=== PATIENT | female | born 1950 | race Hispanic/Latino ===

== ENCOUNTER 2020-07-08 13:57 | Emergency (ER) | payer MEDICARE ==
[~2020-07-08] VITALS: Ht 165.1 cm; Wt 75.7 kg
--- NOTE | 2020-07-08 14:03 | Emergency Department Note ---
History of Present Illnes History of Present Illness Chief Complaint: leg pain History of Present Illness This is a 70 year old female, with no significant past medical history, who presents with a 5 day history of progressively worsening pain radiating from the right buttock down to the right lower extremity, just above the lateral aspect of the left foot. Patient states the pain is constant, burning pain. Patient states she had similar symptoms probably several months ago that were short- lived, and resolved without intervention. She has been taking Tylenol and Motrin for pain, without relief of her symptoms. She has not taken any medication since yesterday, during the day time. Patient denies any trauma, including no falling. She's had no bowel or bladder changes. She denies any fever, chills, nausea, vomiting, dysuria, or frequency. Historian: Patient, Family Member (cousin translated;) Arrival Mode: Car History limited by: language barrier Technical Programs Manager Required: Yes (patient's cousin translated) Onset (how long ago): day(s) (5) Location: RLE Quality: burning, shooting pain Radiation: Reports extremity (RLE) Severity: moderate Duration (how long): day(s) (5) Timing of current episode: constant Progression: unchanged Chronicity: new Context: Denies recent illness, Denies trauma/injury Relieving factors: none Exacerbating factors: movement Associated symptoms: Denies chest pain, Denies fever/chills, Denies headaches, Denies shortness of breath, Denies weakness Treatments prior to arrival: NSAID, antipyretic Past Medical/Family History Physician Review I have reviewed the patient's past medical and family history. Any updates have been documented here. Past Medical History Recent Fever: No Clinical Suspicion of Infectio: No New/Unexplained Change in Ment: No Past Medical History: None Past Surgical History: Cataract Removal (Left) Social History Smoking Cessation: Current every day smoker (1/ ppd) Counseling Performed: Yes Alcohol Use: None Any Illegal Drug Use: No TB Exposure/Symptoms: No Physically hurt or threatened: No Family History Family history of heart diseas: No Other Any Pre-Existing Lines (PICC,: No Is patient up to date on immun: No Review of Systems Review of Systems Constitutional: Denies chills, Denies fever EENTM: Denies ear pain, Denies nose congestion Cardiovascular: Denies chest pain, Denies palpitations Respiratory: Denies cough Gastrointestinal: Denies constipation, Denies diarrhea, Denies nausea, Denies vomiting Genitourinary: Denies dysuria, Denies frequency Musculoskeletal: Reports back pain (mild, low back), Reports muscle pain (lower lumbar right parapspincal muscles) Integumentary: Denies rash Neurological: Reports other ("burning pain" of LLE); Denies headache, Denies paresthesia, Denies tingling Psychological: Reports no symptoms Hematological/Lymphatic: Reports no symptoms Review of other systems: All other systems negative Physical Exam Related Data Vital signs reviewed: Yes Physical Exam CONSTITUTIONAL Constitutional: Present obese; Absent well-developed, Absent well-nourished, Absent distressed, Absent ill appearing, Absent other HENT HENT: Present normocephalic, Present atraumatic, Present oropharynx clear/moist, Present nose normal; Absent rhinorrhea HENT L/R: Present left ext ear normal, Present right ext ear normal EYES Eyes: Reports PERRL, Reports conjunctivae normal NECK Neck: Present ROM normal, Present supple; Absent cervical adenopathy PULMONARY Pulmonary: Present effort normal, Present breath sounds normal CARDIOVASCULAR Cardiovascular: Present regular rhythm, Present heart sounds normal, Present capillary refill normal, Present normal rate GASTROINTESTINAL GENITOURINARY Genitourinary: Present exam deferred SKIN Skin: Present warm, Present dry; Absent rash MUSCULOSKELETAL Musculoskeletal: Present ROM normal (+ SLR on right at 45 degress;), Present tenderness (ttp of right sciatic notch, without tenderness along L-spine or right SI joint; mild ttp of right greater trochanter;) NEUROLOGICAL Neurological: Present alert, Present oriented x 3, Present no gross motor or sensory deficits; Absent cranial nerve deficit, Absent abnormal gait, Absent weakness PSYCHOLOGICAL Psychological: Present mood/affect normal, Present judgement normal Assessment & Plan Medical Decision Making MDM - Apply ice to the area of pain for 15 - 20 minutes, multiple times/ day, to help with pain and inflammation. - Take medications, as directed. - Follow-up with a Primary Care Physician, if your symptoms persist or worsen, as you will need an MRI of your back and possibly right hip, for further evaluation of your pain. We do not perform MRI in the ER . Explained that patient's symptoms could also be due to a lumbar radiculopathy. The treatment prescribed, will potentially fix both problems. Assessment & Plan Final Impression: (1) Sciatica of right side (2) Leg pain, right Depart Disposition: HOME, SELF-prison Meds Active Scripts Prednisone (PREDNISONE) 20 Mg Tab, 50 MG PO DAILY PRN for inflammation for 7 Days, #7 TAB 0 Refills Take qam, with food. Prov:GLEN MIR MD 07/08/20 Acetaminophen/Codeine* (TYLENOL # 3*) 1 Ea Tab, 1-2 TAB PO Q6H PRN for pain, #20 TAB 0 Refills [address] take and drive or operate machinery. Prov:GLEN MIR MD 07/08/20 GLEN MIR MD Jul 08, 2020 14:03
[2020-07-08] MEDS ORDERED: PREDNISONE 20 MG TAB PO ONE (15:15)
[2020-07-08] MEDS ORDERED: HYDROCODONE/APAP 5MG-325MG TAB PO ONE (15:15)
[2020-07-08] MEDS ORDERED: PREDNISONE 20 MG TAB ONE (15:24)
[2020-07-08] MEDS ORDERED: HYDROCODONE/APAP 5MG-325MG TAB ONE (15:25)
[2020-07-08] MEDS ORDERED: TYLENOL # 31 EA PO (15:30)
[2020-07-08] MEDS ORDERED: PREDNISONE20 MG PO (15:32)
== END 2020-07-08 15:42 | disposition home or self-care (01) ==
LOC: FSED 14:23
DX: M54.31 Sciatica, right side (principal); M79.604 Pain in right leg; F17.210 Nicotine dependence, cigarettes, uncomplicated
CPT/HCPCS: 99283; J7512